=== PATIENT | female | born 1975 | race Caucasian/White ===

== ENCOUNTER 2017-03-22 16:53 | Emergency (ER) | payer SELFPAY ==
[~2017-03-22] VITALS: Ht 167.6 cm; Wt 79.5 kg
[~2017-03-22 16:53] MED LIST: PREN-169 PO
[2017-03-22 17:57] VITALS: BP 137/73
--- NOTE | 2017-03-22 20:21 | NUR ---
TO ER BED 4
--- NOTE | 2017-03-22 20:30 | NUR ---
C/O HEAVY VAG BLEEDING X 2 DAYS----LOWER BACK PAIN, DENIES DIZZINESS, MILD FATIGUE PER PT---7 [employer]/DAY WAS SEEN AT [place] YESTERDAY AND INSTRUCTED TO F/U WITH PMD BUT PT DID NOT WANT TO WAIT UNTIL NEXT APPT ON UPCOMING TUESDAY PT DENIES N/V/D; SKIN IS PINK/WARM/DRY; AAOX4 WITH EVEN AND STEADY GAIT; LUNGS CLEAR BL; HR EVEN AND REGULAR; PT DENIES ANY FEVER, CP, SOB, OR COUGH AT THIS TIME; PATIENT STATES PAIN OF 10/10 AT THIS TIME; VSS; PATIENT POSITIONED FOR COMFORT; HOB ELEVATED; BEDRAILS UP X2; BED DOWN. ER MADE AWARE OF PT STATUS.
--- NOTE | 2017-03-22 20:30 | NUR ---
LABS DONE AT BEDSIDE
--- NOTE | 2017-03-22 20:31 | NUR ---
Patient being evaluated by physician at bedside.
[2017-03-22 20:36] LABS: BASOPHILS # (AUTO) 0.1 K/uL (0.00-0.22); BASOPHILS % (AUTO) 0.9 % (0.0-2.0); EOSINOPHILS # (AUTO) 0.1 K/uL (0-0.4); EOSINOPHILS % (AUTO) 0.9 % (0.0-4.0); HEMATOCRIT 30.4 % (36-48); HEMOGLOBIN 9.8 g/dL (12.0-16.0); LYMPHOCYTES # (AUTO) 3.1 K/uL (2.5-16.5); LYMPHOCYTES % (AUTO) 34.5 % (20.5-51.1); MEAN CORPUSCULAR HEMOGLOBIN 27 pg (27-31); MEAN CORPUSCULAR HGB CONC 32 g/dL (33-37); MEAN CORPUSCULAR VOLUME 84 fL (80-94); MONOCYTES # (AUTO) 0.5 K/uL (0.8-1.0); MONOCYTES % (AUTO) 5.4 % (1.7-9.3); NEUTROPHILS # (AUTO) 5.1 K/uL (1.8-7.7); NEUTROPHILS % (AUTO) 58.3 % (42.2-75.2); PLATELET COUNT (AUTO) 187 K/uL (140-450); RED BLOOD CELL COUNT(AUTO) 3.62 MIL/uL (4.20-5.40); RED CELL DISTRIBUTION WIDTH 15.9 % (11.6-13.7); WHITE BLOOD COUNT (AUTO) 8.9 K/uL (4.8-10.8)
[2017-03-22 21:20] VITALS: BP 141/88
== END 2017-03-22 21:20 | disposition home or self-care (01) ==
LOC: MED 16:53
DX: N93.8 Other specified abnormal uterine and vaginal bleeding (principal)
CPT/HCPCS: 36415; 81025; 85025; 99283

== ENCOUNTER 2017-12-08 15:12 | Emergency (ER) | payer MEDICAID ==
[~2017-12-08] VITALS: Ht 165.1 cm; Wt 77.1 kg
[2017-12-08 15:29] VITALS: BP 150/107
[2017-12-08] MEDS ORDERED: HYDROmorphone PFS 2 MG/ML SYR IM ONE (16:00)
[2017-12-08] MEDS ORDERED: KETOROLAC 60 MG/2 ML VIAL IM ONE (16:00)
[2017-12-08 17:26] LABS: BASOPHILS # (AUTO) 0.2 K/uL (0.00-0.22); BASOPHILS % (AUTO) 3.2 % (0.0-2.0); EOSINOPHILS # (AUTO) 0.1 K/uL (0-0.4); EOSINOPHILS % (AUTO) 1.2 % (0.0-4.0); HEMATOCRIT 37.7 % (36-48); HEMOGLOBIN 12.8 g/dL (12.0-16.0); LYMPHOCYTES # (AUTO) 1.9 K/uL (2.5-16.5); LYMPHOCYTES % (AUTO) 30.2 % (20.5-51.1); MEAN CORPUSCULAR HEMOGLOBIN 30 pg (27-31); MEAN CORPUSCULAR HGB CONC 34 g/dL (33-37); MEAN CORPUSCULAR VOLUME 88 fL (80-94); MONOCYTES # (AUTO) 0.4 K/uL (0.8-1.0); NEUTROPHILS # (AUTO) 3.7 K/uL (1.8-7.7); NEUTROPHILS % (AUTO) 59.4 % (42.2-75.2); PLATELET COUNT (AUTO) 185 K/uL (140-450); RED BLOOD CELL COUNT(AUTO) 4.31 MIL/uL (4.20-5.40); RED CELL DISTRIBUTION WIDTH 12.7 % (11.6-13.7); WHITE BLOOD COUNT (AUTO) 6.3 K/uL (4.8-10.8)
[2017-12-08 18:10] VITALS: BP 160/100
== END 2017-12-08 18:10 | disposition home or self-care (01) ==
LOC: MED 15:12
DX: N93.8 Other specified abnormal uterine and vaginal bleeding (principal); R03.0 Elevated blood-pressure reading, without diagnosis of hypertension; Z79.899 Other long term (current) drug therapy
CPT/HCPCS: 36415; 85025; 96372; 99284; J1170; J1885

== ENCOUNTER 2018-05-09 16:50 | Emergency (ER) | payer MEDICAID ==
[~2018-05-09] VITALS: Ht 162.6 cm; Wt 68.0 kg
[2018-05-09 17:04] VITALS: BP 164/74
--- NOTE | 2018-05-09 17:10 | NUR ---
PATIENT PRESENTS TO ED WITH COMPLAINTS OF ABNORMAL VAGINAL BLEEDING. PATIENT STATES HER LAST MENSTRUAL PERIOD WAS OVER 2 YEARS AGO. PATIENT ALSO REPORTS SHE WAS TOLD EARLIER THIS YEAR SHE HAS FIBROIDS AND THAT IS WHY SHE BLEEDS. DESCRIBES SIZE OF BLOOD CLOTS SIZE OF PING LALO BALLS. DENIES FOLLOW UP WITH NATIONAL SECRETARY. DENIES PAIN. URINE COLLECTED AT TIME OF TRIAGE. ASSISTED PATIENT INTO GOWN, BED IN LOWEST POSITION, X 1 BED RAIL UP. VSS. ED MD MADE AWARE OF PATIENT CONDITION.
[2018-05-09] MEDS ORDERED: NACL 0.9% 1,000 ML IV SCH (17:21)
[2018-05-09 17:53] LABS: APPEARANCE,URINE CLOUDY (CLEAR); BILIRUBIN,URINE NEGATIVE (NEGATIVE); BLOOD, URINE 3+ (NEGATIVE); COLOR,URINE RED (YELLOW); LEUKOCYTE ESTERASE ,URINE NEGATIVE (NEGATIVE); NITRITE, URINE NEGATIVE (NEGATIVE); UGLUCOSE 3+ (NEGATIVE)
[2018-05-09 17:53] LABS: BASOPHILS % (AUTO) 0.1 % (0.0-2.0); EOSINOPHILS # (AUTO) 0.1 K/uL (0-0.4); EOSINOPHILS % (AUTO) 1.9 % (0.0-4.0); HEMATOCRIT 28.8 % (36-48); HEMOGLOBIN 8.9 g/dL (12.0-16.0); LYMPHOCYTES # (AUTO) 2.3 K/uL (2.5-16.5); LYMPHOCYTES % (AUTO) 33.6 % (20.5-51.1); MEAN CORPUSCULAR HEMOGLOBIN 21 pg (27-31); MEAN CORPUSCULAR HGB CONC 31 g/dL (33-37); MEAN CORPUSCULAR VOLUME 68.9 fL (80-94); MONOCYTES # (AUTO) 0.5 K/uL (0.8-1.0); MONOCYTES % (AUTO) 7.9 % (1.7-9.3); NEUTROPHILS # (AUTO) 3.8 K/uL (1.8-7.7); NEUTROPHILS % (AUTO) 56.5 % (42.2-75.2); PLATELET COUNT (AUTO) 159 K/uL (140-450); RED BLOOD CELL COUNT(AUTO) 4.18 MIL/uL (4.20-5.40); RED CELL DISTRIBUTION WIDTH 28.3 % (11.6-13.7); WHITE BLOOD COUNT (AUTO) 6.8 K/uL (4.8-10.8)
[2018-05-09 17:56] LABS: RBC,URINE TOO NUMEROUS TO COUN /HPF (0-5); WBC,URINE 0-5 (RARE) /HPF (0-5)
[2018-05-09 18:06] LABS: CARBON DIOXIDE 26.8 mmol/L (21-32); CREATININE 0.7 mg/dL (0.6-1.3); POTASSIUM 3.8 mmol/L (3.5-5.1)
[2018-05-09 18:09] LABS: PROTHROMBIN TIME 11.2 secs (10.8-13.4)
[2018-05-09 18:14] LABS: ALBUMIN 3.7 g/dL (3.4-5.0); TOTAL BILIRUBIN 0.3 mg/dL (0.0-1.0)
--- NOTE | 2018-05-09 19:16 | NUR ---
REPORT GIVEN TO RENETTA SANTANA.
[2018-05-09 19:22] VITALS: BP 136/86
--- NOTE | 2018-05-09 19:24 | NUR ---
Patient discharged with v/s stable. Written and verbal after care instructions given and explained. Patient verbalized understanding. Ambulatory with steady gait. All questions addressed prior to discharge. Advised to follow up with PMD.
== END 2018-05-09 19:24 | disposition home or self-care (01) ==
LOC: MED 16:50
DX: N95.0 Postmenopausal bleeding (principal); D50.0 Iron deficiency anemia secondary to blood loss (chronic)
CPT/HCPCS: 36415; 74176; 76830; 80053; 81001; 81025; 82150; 83690; 84703; 85025; 85610; 86886; 86900; 86901; 99285; Q0092

== ENCOUNTER 2018-06-17 10:02 | Emergency (ER) | payer MEDICAID ==
[~2018-06-17] VITALS: Ht 170.2 cm; Wt 74.8 kg
[2018-06-17 10:10] VITALS: BP 175/83
--- NOTE | 2018-06-17 10:15 | NUR ---
43YO F TO ER FOR VAGINAL PLEEDING X 2-3 DAYS. PT STATES X3PADS PER HR AND BILAT LBP. PT DENIES ANY CP, SOB, N/V/D, COUGH OR FEVER AT THIS TIME. LS CLEAR THROUGHOUT, BS ACTIVE X4, ABD SOFT WITH LLQ TENDERNESS ON PALPATION. WILL CONTINUE TO MONITOR. ER MD MADE AWARE. PT PLACED IN GOWN. PT POSITIONED FOR COMFORT.
[2018-06-17] MEDS ORDERED: MORPHINE SULFATE 2 MG/ML SYR IM ONE (10:30)
[2018-06-17] MEDS ORDERED: KETOROLAC 60 MG/2 ML VIAL IM ONE (10:30)
--- NOTE | 2018-06-17 10:54 | NUR ---
PT TO XRAY VIA W/C WITH RETORT FORKER
[2018-06-17 11:30] LABS: COLOR,URINE RED (YELLOW)
--- NOTE | 2018-06-17 11:30 | NUR ---
lab at bedside
[2018-06-17 11:31] LABS: APPEARANCE,URINE BLOODY (CLEAR)
[2018-06-17 11:56] LABS: BASOPHILS % (AUTO) 0.2 % (0.0-2.0); EOSINOPHILS # (AUTO) 0.1 K/uL (0-0.4); EOSINOPHILS % (AUTO) 1.7 % (0.0-4.0); HEMATOCRIT 32.1 % (36-48); HEMOGLOBIN 10.3 g/dL (12.0-16.0); LYMPHOCYTES # (AUTO) 2.2 K/uL (2.5-16.5); LYMPHOCYTES % (AUTO) 33.8 % (20.5-51.1); MEAN CORPUSCULAR HEMOGLOBIN 24 pg (27-31); MEAN CORPUSCULAR HGB CONC 32 g/dL (33-37); MEAN CORPUSCULAR VOLUME 74.5 fL (80-94); MONOCYTES # (AUTO) 0.5 K/uL (0.8-1.0); MONOCYTES % (AUTO) 7.5 % (1.7-9.3); NEUTROPHILS # (AUTO) 3.6 K/uL (1.8-7.7); NEUTROPHILS % (AUTO) 56.8 % (42.2-75.2); PLATELET COUNT (AUTO) 162 K/uL (140-450); RED BLOOD CELL COUNT(AUTO) 4.31 MIL/uL (4.20-5.40); RED CELL DISTRIBUTION WIDTH 21.9 % (11.6-13.7); WHITE BLOOD COUNT (AUTO) 6.4 K/uL (4.8-10.8)
[2018-06-17 12:19] LABS: PROTHROMBIN TIME 10.3 secs (10.8-13.4)
[2018-06-17 12:42] VITALS: BP 153/80
--- NOTE | 2018-06-17 12:42 | NUR ---
Patient discharged with v/s stable. Written and verbal after care instructions given and explained. Patient alert, oriented and verbalized understanding of instructions. Ambulatory with steady gait. All questions addressed prior to discharge. ID band removed. Patient advised to follow up with PMD. Rx of equaline ferrous sulfate given. Patient educated on indication of medication including possible reaction and side effects. Opportunity to ask questions provided and answered.
== END 2018-06-17 12:42 | disposition home or self-care (01) ==
LOC: MED 10:02
DX: D25.9 Leiomyoma of uterus, unspecified (principal); N70.11 Chronic salpingitis; Z79.899 Other long term (current) drug therapy
CPT/HCPCS: 36415; 76830; 84702; 85025; 85610; 85730; 96372; 99285; J1885; Q0092; J2270

== ENCOUNTER 2019-06-09 14:08 | Inpatient (IN) | payer SELFPAY ==
[2019-06-08 19:45] VITALS: BP 113/76
[~2019-06-09] VITALS: Ht 160 cm; Wt 71.7 kg
[2019-06-09 14:16] VITALS: BP 97/47
[2019-06-09] MEDS ORDERED: ACETAMINOPHEN EXTRA STRENGTH 500 MG TAB PO ONE (14:35)
[2019-06-09] MEDS ORDERED: NACL 0.9% 2,000 ML IV ONE (15:00)
[2019-06-09 15:25] LABS: BASOPHILS % (AUTO) 0.2 % (0.0-2.0); HEMATOCRIT 41.6 % (36-48); HEMOGLOBIN 14.2 g/dL (12.0-16.0); LYMPHOCYTES # (AUTO) 0.8 K/uL (2.5-16.5); LYMPHOCYTES % (AUTO) 19.7 % (20.5-51.1); MEAN CORPUSCULAR HEMOGLOBIN 30 pg (27-31); MEAN CORPUSCULAR HGB CONC 34 g/dL (33-37); MEAN CORPUSCULAR VOLUME 89.1 fL (80-94); MONOCYTES # (AUTO) 0.2 K/uL (0.8-1.0); MONOCYTES % (AUTO) 4.8 % (1.7-9.3); NEUTROPHILS # (AUTO) 3.1 K/uL (1.8-7.7); NEUTROPHILS % (AUTO) 75.3 % (42.2-75.2); PLATELET COUNT (AUTO) 88 K/uL (140-450); RED BLOOD CELL COUNT(AUTO) 4.67 MIL/uL (4.20-5.40); RED CELL DISTRIBUTION WIDTH 13.2 % (11.6-13.7); WHITE BLOOD COUNT (AUTO) 4.1 K/uL (4.8-10.8)
[2019-06-09 16:03] LABS: ALBUMIN 3.4 g/dL (3.4-5.0); ANION GAP 19.9 (8-16); CARBON DIOXIDE 19.6 mmol/L (21-32)
[2019-06-09 16:09] LABS: POTASSIUM 2.5 mmol/L (3.5-5.1)
[2019-06-09] MEDS ORDERED: KCL 20 MEQ/WATER INJ PREMIX 200 ML IV ONE (16:20)
[2019-06-09 16:21] LABS: APPEARANCE,URINE SL CLOUDY (CLEAR); BILIRUBIN,URINE 1+ (NEGATIVE); BLOOD, URINE 3+ (NEGATIVE); COLOR,URINE RED (YELLOW); LEUKOCYTE ESTERASE ,URINE TRACE (NEGATIVE); NITRITE, URINE POSITIVE (NEGATIVE); UGLUCOSE 3+ (NEGATIVE)
[2019-06-09 16:30] LABS: TOTAL BILIRUBIN 1.3 mg/dL (0.0-1.0)
[2019-06-09 16:33] LABS: RBC,URINE TOO NUMEROUS TO COUN /HPF (0-5)
[2019-06-09] MEDS ORDERED: METF500T PO (16:36)
[2019-06-09] MEDS ORDERED: cefTRIAXone 1,000 MG VIAL ONE (16:46)
[2019-06-09] MEDS ORDERED: NACL 0.9% 1,000 ML IV ONE (17:10)
[2019-06-09] MEDS ORDERED: POTASSIUM CHLORIDE 40 MEQ, LIDOCAINE MPF 1% - 5 mL VIAL 25 MG in NACL 0.9% 250 ML IV ONE (17:10)
[2019-06-09] MEDS ORDERED: MORPHINE SULFATE 2 MG/ML SYR IVP PRN (17:10)
[2019-06-09] MEDS ORDERED: HYDROcodone/APAP 5/325 MG 1 TAB TAB PO PRN (17:10)
[2019-06-09] MEDS ORDERED: ZOLPIDEM 5 MG TAB PO PRN (17:10)
[2019-06-09] MEDS ORDERED: ONDANSETRON 4 MG/2 ML VIAL IM/IVP PRN (17:10)
[2019-06-09] MEDS ORDERED: DOCUSATE SODIUM 100 MG GELCAP PO PRN (17:10)
[2019-06-09] MEDS ORDERED: LORazepam 2 MG/ML VIAL IM/IVP PRN (17:10)
[2019-06-09 17:57] LABS: PROTHROMBIN TIME 10.5 secs (10.8-13.4)
[2019-06-09 17:59] LABS: BARBITURATE, URINE n ng/ml (NEG <=200); BENZODIAZEPINE, URINE n ng/mL (NEG <=200); CANNABINOID, URINE n ng/mL (NEG <=50); COCAINE, URINE n ng/mL (NEG <=300); OPIATE, URINE n ng/mL (NEG <=2000); PHENCYCLIDINE SCREEN,URINE n ng/mL (NEG <=25)
[2019-06-09] MEDS ORDERED: POTASSIUM CHLORIDE 10 MEQ TABER PO SCH (18:00)
[2019-06-09] MEDS: NACL 0.9% 1,000 ML IV SCH (18:02)
[2019-06-09] MEDS: PANTOPRAZOLE 40 MG INJ VIAL IVP SCH (18:24)
[2019-06-09 18:31] LABS: MAGNESIUM 1.1 mg/dL (1.8-2.4); PHOSPHORUS 2.4 mg/dL (2.5-4.9); THYROID STIMULATING HORMONE 0.31 uIU/mL (0.34-3.74)
[2019-06-09] MEDS ORDERED: PANTOPRAZOLE 40 MG INJ VIAL ONE (18:33)
[2019-06-09] MEDS: MAG SULF 2000 MG/WATER PREMIX 100 ML IV SCH ×2 (20:00→21:39)
[2019-06-09] MEDS ORDERED: DEXTROSE 50% 50 ML SYR IVP PRN (20:25)
[2019-06-09] MEDS: BLOOD GLUCOSE MONITORING 1 DEV DEV FS SCH (21:08)
[2019-06-09] MEDS: INSULIN LISPRO SLIDING SCALE 100 UNITS/ML VIAL SUBQ PRN (21:17)
[2019-06-09] MEDS ORDERED: SODIUM PHOS / POTASSIUM PHOS 1 PKT PDR PO SCH (21:30)
[2019-06-10] VITALS (10 sets, daily range): BP systolic 124–158; BP diastolic 73–97
[2019-06-10] MEDS: NACL 0.9% 1,000 ML IV SCH ×2 (00:13→01:24)
[2019-06-10] MEDS: ACETAMINOPHEN 325 MG TAB PO PRN ×3 (01:18→22:37)
[2019-06-10] MEDS: BLOOD GLUCOSE MONITORING 1 DEV DEV FS SCH ×14 (06:02→22:33)
[2019-06-10] MEDS: INSULIN LISPRO SLIDING SCALE 100 UNITS/ML VIAL SUBQ PRN (06:04)
[2019-06-10 06:58] LABS: HEMATOCRIT 34.1 % (36-48); HEMOGLOBIN 11.5 g/dL (12.0-16.0); MEAN CORPUSCULAR HEMOGLOBIN 30 pg (27-31); MEAN CORPUSCULAR HGB CONC 34 g/dL (33-37); MEAN CORPUSCULAR VOLUME 89.6 fL (80-94); PLATELET COUNT (AUTO) 89 K/uL (140-450); RED CELL DISTRIBUTION WIDTH 13.1 % (11.6-13.7)
[2019-06-10 07:12] LABS: CHOL/HDL RATIO 3.5 (1-4.5)
[2019-06-10 07:17] LABS: MAGNESIUM 1.7 mg/dL (1.8-2.4); PHOSPHORUS 2.1 mg/dL (2.5-4.9)
[2019-06-10 07:29] LABS: ANION GAP 20.2 (8-16); CARBON DIOXIDE 14.3 mmol/L (21-32); CREATININE 0.5 mg/dL (0.6-1.3); POTASSIUM 3.5 mmol/L (3.5-5.1)
[2019-06-10 08:12] LABS: BASOPHILS % (MANUAL) 0 % (0-2); EOSINOPHILS % (MANUAL) 0 % (0-4); LYMPHOCYTES % (MANUAL) 14 % (20-46); MONOCYTES % (MANUAL) 5 % (5-12)
[2019-06-10] MEDS: LACTOBACILLUS RHAMNOSUS GG 1 EACH CAP PO SCH (08:18)
[2019-06-10] MEDS: PANTOPRAZOLE 40 MG INJ VIAL IVP SCH (08:18)
[2019-06-10] MEDS ORDERED: DEXTROSE 50% 50 ML SYR IVP PRN (09:35)
[2019-06-10] MEDS ORDERED: INSULIN REGULAR, HUMAN 100 UNIT/ML VIAL SUBQ SCH (11:05)
[2019-06-10] MEDS: DEXT 5% / NACL 0.45% 1,000 ML IV SCH ×3 (11:05→19:55)
[2019-06-10] MEDS ORDERED: INSULIN REGULAR, HUMAN 100 UNIT/ML VIAL IVP ONE (11:50)
[2019-06-10 12:41] LABS: ANION GAP 18.3 (8-16); CARBON DIOXIDE 17.8 mmol/L (21-32); CREATININE 0.5 mg/dL (0.6-1.3); POTASSIUM 3.1 mmol/L (3.5-5.1)
[2019-06-10 12:45] LABS: MAGNESIUM 1.5 mg/dL (1.8-2.4); PHOSPHORUS 1.7 mg/dL (2.5-4.9)
[2019-06-10] MEDS ORDERED: MAG SULF 2000 MG/WATER PREMIX 100 ML IV ONE (13:05)
[2019-06-10] MEDS: INSULIN REGULAR, HUMAN 100 UNIT in NACL 0.9% 100 ML IV SCH ×2 (13:17)
[2019-06-10] MEDS ORDERED: POTASSIUM PHOSPHATE 15 MM in NACL 0.9% 250 ML IV ONE (14:00)
[2019-06-10] MEDS: SODIUM PHOS / POTASSIUM PHOS 1 PKT PDR PO SCH ×2 (14:26→16:41)
[2019-06-10 17:01] LABS: ANION GAP 15.9 (8-16); CARBON DIOXIDE 18.1 mmol/L (21-32); CREATININE 0.5 mg/dL (0.6-1.3)
[2019-06-10 17:05] LABS: MAGNESIUM 1.9 mg/dL (1.8-2.4); PHOSPHORUS 2.1 mg/dL (2.5-4.9)
[2019-06-10 21:01] LABS: ANION GAP 14.2 (8-16); CARBON DIOXIDE 22.6 mmol/L (21-32); CREATININE 0.6 mg/dL (0.6-1.3); POTASSIUM 2.8 mmol/L (3.5-5.1)
[2019-06-10 21:02] LABS: MAGNESIUM 2.2 mg/dL (1.8-2.4); PHOSPHORUS 2.8 mg/dL (2.5-4.9)
[2019-06-10] MEDS: KCL 20 MEQ/WATER INJ PREMIX 100 ML IV SCH (21:36)
[2019-06-11] VITALS (11 sets, daily range): BP systolic 119–157; BP diastolic 67–100
[2019-06-11] MEDS: BLOOD GLUCOSE MONITORING 1 DEV DEV FS SCH ×18 (00:12→21:00)
[2019-06-11] MEDS: KCL 20 MEQ/WATER INJ PREMIX 100 ML IV SCH (01:09)
[2019-06-11 01:46] LABS: ANION GAP 13.5 (8-16); CARBON DIOXIDE 23.2 mmol/L (21-32); CREATININE 0.5 mg/dL (0.6-1.3); POTASSIUM 2.7 mmol/L (3.5-5.1)
[2019-06-11 01:47] LABS: MAGNESIUM 1.7 mg/dL (1.8-2.4)
[2019-06-11] MEDS: INSULIN REGULAR, HUMAN 100 UNIT in NACL 0.9% 100 ML IV SCH ×2 (04:42)
[2019-06-11] MEDS: SODIUM PHOS / POTASSIUM PHOS 1 PKT PDR PO SCH (07:03)
[2019-06-11] MEDS ORDERED: NACL 0.9% 1,000 ML IV SCH (08:15)
[2019-06-11] MEDS ORDERED: POTASSIUM CHL 20 MEQ/NACL 0.9% 1,000 ML IV SCH (08:20)
[2019-06-11] MEDS: FERROUS SULFATE 325 MG TABEC PO SCH (08:34)
[2019-06-11] MEDS: LACTOBACILLUS RHAMNOSUS GG 1 EACH CAP PO SCH (08:35)
[2019-06-11] MEDS: medroxyPROGESTERone 10 MG TAB PO SCH (08:36)
[2019-06-11] MEDS: PANTOPRAZOLE 40 MG INJ VIAL IVP SCH (08:36)
[2019-06-11 08:54] LABS: MAGNESIUM 1.6 mg/dL (1.8-2.4)
[2019-06-11 08:55] LABS: ANION GAP 17.2 (8-16); CARBON DIOXIDE 20.9 mmol/L (21-32); CREATININE 0.5 mg/dL (0.6-1.3); POTASSIUM 3.1 mmol/L (3.5-5.1)
[2019-06-11] MEDS ORDERED: POTASSIUM CHL 20 MEQ/D5-1/2NS 1,000 ML IV SCH (10:45)
[2019-06-11] MEDS ORDERED: POTASSIUM PHOSPHATE 15 MM in NACL 0.9% 250 ML IV SCH (11:30)
[2019-06-11] MEDS ORDERED: PROBIOTIC SCREEN 1 EA MISC MC PRN (11:55)
[2019-06-11 13:53] LABS: ANION GAP 10.7 (8-16); CARBON DIOXIDE 27.4 mmol/L (21-32); CREATININE 0.4 mg/dL (0.6-1.3); POTASSIUM 3.1 mmol/L (3.5-5.1)
[2019-06-11 13:57] LABS: MAGNESIUM 1.6 mg/dL (1.8-2.4); PHOSPHORUS 2.4 mg/dL (2.5-4.9)
[2019-06-11] MEDS ORDERED: POTASSIUM PHOSPHATE 15 MM in NACL 0.9% 250 ML IV ONE (14:25)
[2019-06-11] MEDS ORDERED: POTASSIUM CHL 40 MEQ/ D5-1/2NS 1,000 ML IV SCH (14:37)
[2019-06-11] MEDS ORDERED: POTASSIUM CHLORIDE 10 MEQ TABER PO SCH (15:00)
[2019-06-11 15:40] LABS: PHOSPHORUS 2.7 mg/dL (2.5-4.9)
[2019-06-11 15:42] LABS: CARBON DIOXIDE 27.9 mmol/L (21-32); POTASSIUM 2.9 mmol/L (3.5-5.1)
[2019-06-11 15:43] LABS: CREATININE 0.5 mg/dL (0.6-1.3)
[2019-06-11] MEDS ORDERED: INSULIN LANTUS 100 UNITS/ML 10 ML VIAL SUBQ SCH (16:03)
[2019-06-11] MEDS: NACL 0.9% 1,000 ML IV SCH ×2 (16:12→22:58)
[2019-06-11 16:56] LABS: MAGNESIUM 1.6 mg/dL (1.8-2.4)
[2019-06-11] MEDS ORDERED: MAG SULF 2000 MG/WATER PREMIX 100 ML IV SCH (17:00)
[2019-06-11 21:03] LABS: ANION GAP 13.8 (8-16); CARBON DIOXIDE 24.6 mmol/L (21-32); CREATININE 0.4 mg/dL (0.6-1.3); POTASSIUM 3.4 mmol/L (3.5-5.1)
[2019-06-11] MEDS: INSULIN LISPRO SLIDING SCALE 100 UNITS/ML VIAL SUBQ PRN (22:36)
[2019-06-12] VITALS: BP 134/87
[2019-06-12] MEDS: ACETAMINOPHEN 325 MG TAB PO PRN (00:36)
[2019-06-12 04:00] VITALS: BP 119/82
[2019-06-12] MEDS: BLOOD GLUCOSE MONITORING 1 DEV DEV FS SCH ×4 (05:53→20:46)
[2019-06-12] MEDS: INSULIN LISPRO SLIDING SCALE 100 UNITS/ML VIAL SUBQ PRN ×4 (05:56→21:06)
[2019-06-12 06:07] LABS: ANION GAP 14.3 (8-16); CARBON DIOXIDE 24.1 mmol/L (21-32); CREATININE 0.5 mg/dL (0.6-1.3); POTASSIUM 3.4 mmol/L (3.5-5.1)
[2019-06-12] MEDS: MAG SULF 2000 MG/WATER PREMIX 100 ML IV SCH ×2 (06:48→08:03)
[2019-06-12 08:00] VITALS: BP 110/85
[2019-06-12 08:53] LABS: BASOPHILS % (AUTO) 0.2 % (0.0-2.0); EOSINOPHILS # (AUTO) 0.1 K/uL (0-0.4); EOSINOPHILS % (AUTO) 1.3 % (0.0-4.0); HEMATOCRIT 27.5 % (36-48); HEMOGLOBIN 9.3 g/dL (12.0-16.0); LYMPHOCYTES # (AUTO) 2.2 K/uL (2.5-16.5); LYMPHOCYTES % (AUTO) 29.1 % (20.5-51.1); MEAN CORPUSCULAR HEMOGLOBIN 31 pg (27-31); MEAN CORPUSCULAR HGB CONC 34 g/dL (33-37); MEAN CORPUSCULAR VOLUME 90.2 fL (80-94); NEUTROPHILS # (AUTO) 4.2 K/uL (1.8-7.7); NEUTROPHILS % (AUTO) 56.4 % (42.2-75.2); PLATELET COUNT (AUTO) 108 K/uL (140-450); RED BLOOD CELL COUNT(AUTO) 3.05 MIL/uL (4.20-5.40); RED CELL DISTRIBUTION WIDTH 13.2 % (11.6-13.7); WHITE BLOOD COUNT (AUTO) 7.5 K/uL (4.8-10.8)
[2019-06-12] MEDS: FERROUS SULFATE 325 MG TABEC PO SCH ×2 (08:59→09:24)
[2019-06-12] MEDS: LACTOBACILLUS RHAMNOSUS GG 1 EACH CAP PO SCH (09:24)
[2019-06-12] MEDS: PANTOPRAZOLE 40 MG INJ VIAL IVP SCH (09:24)
[2019-06-12] MEDS: medroxyPROGESTERone 10 MG TAB PO SCH (09:25)
[2019-06-12] MEDS: INSULIN LANTUS 100 UNITS/ML 10 ML VIAL SUBQ SCH (09:33)
[2019-06-12] MEDS ORDERED: POTASSIUM CHLORIDE 10 MEQ TABER PO SCH (11:00)
[2019-06-12] MEDS: NACL 0.9% 1,000 ML IV SCH ×2 (12:00→22:00)
[2019-06-12 16:00] VITALS: BP 122/72
[2019-06-12] MEDS ORDERED: PNEUMOCOCCAL VACCINE 23 MCG/0.5 ML VIAL IMVAC SCH (18:45)
[2019-06-13] MEDS: NACL 0.9% 1,000 ML IV SCH (00:03)
[2019-06-13 00:57] VITALS: BP 141/86
[2019-06-13] MEDS: BLOOD GLUCOSE MONITORING 1 DEV DEV FS SCH ×2 (05:43→11:45)
[2019-06-13 06:07] LABS: T4 (THYROXINE) 8.8 ug/dL (4.5-12.0)
[2019-06-13 06:07] LABS: FOLIC ACID 13.8 ng/mL (>3.0)
[2019-06-13] MEDS: INSULIN LISPRO SLIDING SCALE 100 UNITS/ML VIAL SUBQ PRN ×2 (06:21→11:51)
[2019-06-13 06:40] LABS: BASOPHILS % (AUTO) 0.7 % (0.0-2.0); EOSINOPHILS # (AUTO) 0.1 K/uL (0-0.4); EOSINOPHILS % (AUTO) 1.6 % (0.0-4.0); HEMATOCRIT 25.5 % (36-48); HEMOGLOBIN 8.6 g/dL (12.0-16.0); LYMPHOCYTES # (AUTO) 2.2 K/uL (2.5-16.5); LYMPHOCYTES % (AUTO) 33.4 % (20.5-51.1); MEAN CORPUSCULAR HEMOGLOBIN 30 pg (27-31); MEAN CORPUSCULAR HGB CONC 34 g/dL (33-37); MEAN CORPUSCULAR VOLUME 89.6 fL (80-94); MONOCYTES # (AUTO) 0.6 K/uL (0.8-1.0); NEUTROPHILS # (AUTO) 3.6 K/uL (1.8-7.7); NEUTROPHILS % (AUTO) 55.3 % (42.2-75.2); PLATELET COUNT (AUTO) 142 K/uL (140-450); RED BLOOD CELL COUNT(AUTO) 2.85 MIL/uL (4.20-5.40); RED CELL DISTRIBUTION WIDTH 12.8 % (11.6-13.7); WHITE BLOOD COUNT (AUTO) 6.6 K/uL (4.8-10.8)
[2019-06-13 08:15] VITALS: BP 132/89
[2019-06-13] MEDS: LACTOBACILLUS RHAMNOSUS GG 1 EACH CAP PO SCH (08:42)
[2019-06-13] MEDS: medroxyPROGESTERone 10 MG TAB PO SCH (08:42)
[2019-06-13] MEDS: PANTOPRAZOLE 40 MG INJ VIAL IVP SCH (08:42)
[2019-06-13] MEDS: INSULIN LANTUS 100 UNITS/ML 10 ML VIAL SUBQ SCH (08:45)
[2019-06-13] MEDS ORDERED: MEDR10TA33 PO (08:46)
[2019-06-13] MEDS ORDERED: AMOX-999 PO (08:46)
[2019-06-13] MEDS ORDERED: LANTUS SUBQ (08:46)
[2019-06-13] MEDS ORDERED: LACT10CA1 PO (08:46)
[2019-06-13] MEDS ORDERED: FER325 PO (08:46)
[2019-06-13 09:46] VITALS: BP 132/89
[2019-06-13] MEDS ORDERED: ASCO500T45 PO (10:36)
[2019-06-13 10:59] LABS: ANION GAP 13.5 (8-16); CARBON DIOXIDE 24.9 mmol/L (21-32); CREATININE 0.5 mg/dL (0.6-1.3); POTASSIUM 3.4 mmol/L (3.5-5.1)
== END 2019-06-13 11:55 | disposition home or self-care (01) | DRG 871 ==
LOC: MED 14:08 → MTU 17:16 → MIC 06-10 10:31 → MTU 06-11 22:27
PROVIDERS: ADMIT General Practice; ATTEND General Practice
DX: A41.3 Sepsis due to Hemophilus influenzae (principal); G93.41 Metabolic encephalopathy; N39.0 Urinary tract infection, site not specified; E87.1 Hypo-osmolality and hyponatremia; E87.2 Acidosis; E72.51 Non-ketotic hyperglycinemia; D25.9 Leiomyoma of uterus, unspecified; E11.9 Type 2 diabetes mellitus without complications; E87.6 Hypokalemia; E11.65 Type 2 diabetes mellitus with hyperglycemia; E83.39 Other disorders of phosphorus metabolism; D69.6 Thrombocytopenia, unspecified; E02 Subclinical iodine-deficiency hypothyroidism; D64.9 Anemia, unspecified; R65.20 Severe sepsis without septic shock; N92.0 Excessive and frequent menstruation with regular cycle
CPT/HCPCS: 36415; 36600; 71045; 76705; 76856; 80048; 80053; 80305; 81001; 82140; 82150; 82607; 82728; 82746; 82803; 82948; 83036; 83540; 83605; 83690; 83735; 83880; 84100; 84134; 84436; 84443; 84484; 84703; 85025; 85045; 85610; 85730; 87040; 87081; 87086; 87804; 93005; 96361; 96365; 96367; 99285; C1758; C9113; J0696; J1815; J3475; J3480; J7030; J7060; Q0092